=== PATIENT | male | born 1960 | race Caucasian/White ===

== ENCOUNTER 2019-12-02 21:47 | Emergency (ER) | payer OTHER, SELFPAY ==
[2019-12-02 21:48] VITALS: BP 155/115; PULSE 112; RESP 20; TEMP 36.2; O2SAT 97; BMI 22.7
[2019-12-03 00:13] VITALS: BP 185/105; PULSE 99; RESP 16; O2SAT 99
[2019-12-03 00:21] LABS: Absolute Neutrophil Count 6.4 X10^3/uL (2.0-7.7); Basophil# 0.04 X10^3/uL; Basophil% 0.5 % (0-1); Eosinophil# 0.11 X10^3/uL; Eosinophils% 1.3 % (0-5); Hematocrit 44.9 % (40-54); Hemoglobin 14.9 g/dL (13.0-16.5); Lymphocyte % 15.6 % (19-41); Mean Corp Hgb Conc 33.2 g/dL (32-36); Mean Corpuscular Volume 90.3 fL (80-94); Mean Platelet Vol. 9.5 fl (6.2-12.0); Monocyte# 0.49 X10^3/uL; Monocyte% 5.9 % (0-10); NRBC Flagged by Analyzer 0 % (0-5); Neutrophil # 6.36 X10^3/uL (2.7-7.7); Neutrophil % 76.5 % (47-70); Platelet Count 289 K/mm3 (150-450); RBC Distribution Width CV 12.9 % (11.6-14.6); RBC Distribution Width SD 42.2 fl (35.1-43.9); Red Blood Count 4.97 M/mm3 (4.6-6.2); White Blood Count 8.3 K/mm3 (4.4-11.0)
[2019-12-03 00:43] LABS: Anion Gap 3 (5-15); BUN 20 mg/dL (7-18); BUN/Creat Ratio 22.7 RATIO (10-20); Calcium,Total 9.2 mg/dL (8.5-10.1); Chloride 107 mmol/L (98-107); Creatinine, Serum 0.88 mg/dL (0.70-1.30); EST Glomerular Filtration Rate 95 mL/min (>60); Est Glom Filt Rate - Afr Amer 114 mL/min (>60); Estimated Creatinine Clearance 102.44 ml/min; Glucose 103 mg/dL (74-106); Potassium 4.1 mmol/L (3.5-5.1); Sodium Level 140 mmol/L (136-145)
--- NOTE | 2019-12-03 01:00 | ED.DCSUM_ITS ---
- ER Visit Summary Date of Service: 12/03/19 Chief Complaint: Eye not blinking, lip numbness improved History of Present Illness: The patient is a 59 M who states that his left eye is not blinking normally. It started today. He states the rash started yesterday with some lip numbness which started about 24 hours ago. Today states his left eye is not blinking. He denies any slurred speech. He does have a facial droop on the left. He denies any arm or leg weakness. He has a history of back pain and is having more issues with that her last couple weeks but usually does not affect his face or speech. He called his PCP who told him to get evaluated for possible Browning's palsy. Physical Examination: Vital signs reviewed. HEENT exam unremarkable. Heart is regular rate and rhythm without murmurs. Lungs are clear to auscultation. Abdomen is soft and nontender. Extremities reveal no edema. Skin exam normal. Neurologic exam shows that his left eye would not close all the way. He has a left-sided facial droop. He has no slurred speech. No dysarthria. His left forehead does not wrinkle when raising his eyebrows Test Results: Laboratory studies unremarkable. CAT scan of the head reveals no acute abnormalities Emergency Department Course and Treatment: Etiology of the patient's symptoms appears to be peripheral. His left forehead does not wrinkle when he raises his eyebrows. This is consistent with a Browning's palsy. He has no other neurologic deficits. I will treat him with prednisone and acyclovir. I will give him artificial tears to help with any eye dryness. He is going to call his doctor tomorrow for follow-up. Treatment Plan: [] Disposition: Discharge Impression: Browning's palsy This note was generated with [employer] dictation software. It may contain incorrect words, spelling, and punctuation that were not noted in review of the chart prior to signing ED Disposition - Plan for ED Patient: Disposition: Home or Assisted Living Instructions: Browning's Palsy Prescriptions: Acyclovir 1 tab PO 5X/DAY #50 tab Prescription Printed predniSONE tablet 60 mg PO DAILY #12 tab Prescription Printed Dextran 70/He-Cell [Tears Naturale, Artificial Tears] 1 drp LEFT EYE Q1H PRN PRN #1 bottle PRN Reason: dry eye Prescription Printed Referrals: Vern Dunham MD [Primary Care Provider] -
[2019-12-03] MEDS: Acyclovir 200 MG Capsule 400 MG PO (01:26)
[2019-12-03] MEDS: predniSONE 20 MG Tablet 60 MG PO (01:26)
[2019-12-03 01:27] VITALS: BP 173/110; PULSE 90; RESP 16; O2SAT 98
--- NOTE | 2019-12-03 23:51 | CT_ITS ---
STUDY: CT BRAIN WITHOUT CONTRAST REASON FOR EXAM: Male, 59 years old. FACIAL DROOP, NUMBNESS TO UPPER LIP SINCE LAST NIGHT,LEFT EYELID NOT BLINKING RADIATION DOSAGE (If Supplied By Facility): CTDIvol = ( 44.99 ) mGy, DLP = ( 846.73 ) mGycm TECHNIQUE: Transaxial CT imaging of the brain was performed without administration of intravenous contrast material. Individualized dose optimization techniques were used for this CT. COMPARISON: No relevant priors. FINDINGS: Normal soft tissue structures. Normal calvarium. Normal size ventricles and extra-axial spaces for the patient''s age. Normal white matter tracts of the cerebral hemispheres. Normal basal ganglia and thalami. Normal brainstem. Normal cerebellum. There is atherosclerotic calcification of the cavernous carotid arteries. There is no intracranial hemorrhage. There are no findings of an acute ischemic infarction. Normal visualized paranasal sinuses. CT/Brain/Head without Contrast IMPRESSION: No demonstrated acute intracranial process. 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 Electronically Signed: Cain Joel MD at 0:52 EDT , Service support ,
== END 2019-12-03 01:29 | disposition home or self-care (01) ==
PROVIDERS: Emergency Provider Emergency Medicine; PCP Family Medicine
DX: G51.0 Bell's palsy (principal)
CPT/HCPCS: 70450; 80048; 85025; 99284; A4216